=== PATIENT | female | born 1980 | race Caucasian/White ===

== ENCOUNTER 2023-09-21 08:37 | Emergency (ER) | payer BC ==
[2023-09-21 08:57] VITALS: BP 104/65; PULSE 62; RESP 18; TEMP 98.1; BMI 21.7
== END 2023-09-21 09:30 | disposition home or self-care (01) ==
LOC: FER 08:37
DX: L23.7 Allergic contact dermatitis due to plants, except food (principal)
CPT/HCPCS: 99283-25